=== PATIENT | male | born 1935 | race Caucasian/White ===

== ENCOUNTER → 2017-12-07 | Outpatient (CLI) | payer MEDICARE ==
[~2017-12-07] MED LIST: BYETTA10 MCG/0.0 SQ; CEFUROXIME500 MG PO; FLOMAX0.4 MG PO; GLIPIZIDE-METF1 EAC2 PO; LEVAQUIN500 MG PO; LINZESS PO; MELOXICAM15 MG PO
--- NOTE | 2017-12-07 15:34 | Diagnostic Imaging Report ---
PROCEDURE:HIP RIGHT 2-3 VW (+/- PELVIS) COMPARISON:None. INDICATIONS:RIGHT HIP PAIN ONGOING FINDINGS: BONES: No acute fracture or dislocation. 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 Degenerative changes of the lower lumbar spine partially visualized are vascular calcifications. SOFT TISSUES:Negative. OTHER:Negative. CONCLUSION: Severe degenerative changes of the right hip joint. Agnieszka Goncalves M.D. Dictated by: Agnieszka Goncalves M.D. on 12/07/2017 at 15:35 Electronically approved by: Agnieszka Goncalves M.D. on 12/07/2017 at 15:35
== END ==
LOC: RAD 14:46
PROVIDERS: ATTEND Internal Medicine
DX: M25.551 Pain in right hip (principal)

== ENCOUNTER 2022-08-30 18:06 | Emergency (ER) | payer MEDICARE ==
[~2022-08-30] VITALS: Ht 188 cm; Wt 97.5 kg
[2022-08-30] MEDS ORDERED: SODIUM CHLORIDE FLUSH 10 ML SYR INJ PRN (19:30)
[2022-08-30] MEDS ORDERED: ONDANSETRON HCL INJ 2MG/ML 2ML 2 MG/ML VIAL IV PRN (19:30)
[2022-08-30] MEDS ORDERED: Morphine 2mg Syringe 2 MG/ML SYR IV PRN (19:30)
[2022-08-30 19:37] LABS: BASOPHILS # (AUTO) 0.1 (0.0-0.1); BASOPHILS % 0.3 % (0.0-1.0); EOSINOPHILS % 0.1 % (0.0-6.0); HEMATOCRIT 36.1 % (38.2-49.6); HEMOGLOBIN 11.4 g/dL (14.0-18.0); LYMPHOCYTES # (AUTO) 1.6 (1.0-3.2); LYMPHOCYTES % 10.3 % (18.0-39.1); MEAN CORPUSCULAR HGB CONC 31.6 g/dL (31-35); MEAN CORPUSCULAR VOLUME 88.7 fL (81-99); MONOCYTES # (AUTO) 1.3 (0.2-0.8); MONOCYTES % 8.4 % (4.4-11.3); NEUTROPHILS # (AUTO) 12.1 (2.1-6.9); NEUTROPHILS % 80.3 % (38.7-80.0); PLATELET COUNT 211 x10e3/uL (140-360); RED BLOOD COUNT 4.07 x10e6/uL (4.3-5.7); RED CELL DISTRIBUTION WIDTH 12.9 % (11.7-14.4)
[2022-08-30 20:01] LABS: ALBUMIN 4.5 g/dL (3.5-5.0); ALBUMIN/GLOBULIN RATIO 1.6 (0.8-2.0); ANION GAP 20.7 mmol/L (8-16); CALCIUM 9.6 mg/dL (8.4-10.2); CREATININE, SERUM 1.42 mg/dL (0.72-1.25); POTASSIUM 4.7 mmol/L (3.5-5.1)
[2022-08-30] MEDS ORDERED: SODIUM CHLORIDE 0.9% 500ML 500 ML IV ONE (20:30)
[2022-08-30] MEDS ORDERED: SODIUM CHLORIDE 0.9% 100 ML ONE (20:47)
[2022-08-30] MEDS ORDERED: IOPAMIDOL 370 MG/ML 100 ML INFUS..BTL INJ ONE (20:47)
[2022-08-31 03:23] VITALS: BP 135/71
== END 2022-08-31 03:22 | disposition other institution (70) ==
LOC: ER 18:11 → ERHOLD 19:30 → UNDOADMIN 19:30 → ER 08-31 03:22
DX: S72.391A Other fracture of shaft of right femur, initial encounter for closed fracture (principal); W18.30XA Fall on same level, unspecified, initial encounter; Y92.89 Other specified places as the place of occurrence of the external cause; F03.90 Unspecified dementia, unspecified severity, without behavioral disturbance, psychotic disturbance, mood disturbance, and anxiety; Z20.822 Contact with and (suspected) exposure to COVID-19
CPT/HCPCS: 0223U; 29505; 36415; 51700; 70450; 73552; 73562; 73706; 80053; 82550; 85025; 93005; 99285; J7040; J7050; Q9967